=== PATIENT | male | born 1995 | race Caucasian/White ===

== ENCOUNTER 2019-01-01 17:13 | Emergency (ER) | payer SELFPAY ==
--- NOTE | 2019-01-01 17:29 | ED Physician Documentation ---
General Adult - HISTORIAN Historian: patient - HPI Stated Complaint: Laceration Chief Complaint: Laceration/Recheck/Suture Onset: hours (1) Timing: still present Severity: mild Further Comments: yes (laceration on left hand from a knife he was cutting a belt from a chicken feces machine) - ROS CONST: no problems MS/SKIN/LYMPH: other (laceration ) - PAST HX Past History: none Other History: none Surgeries/Procedures: none Immunizations: tetanus Allergies/Adverse Reactions: Allergies Allergy/AdvReac Type Severity Reaction Status Date / Time No Known Allergies Allergy Verified 01/01/19 17:29 Home Medications: Ambulatory Orders Medication Instructions Recorded NK 01/01/19 - SOCIAL HX Smoking History: non-smoker Alcohol Use: none Drug Use: none - FAMILY HX Family History: No - VITAL SIGNS Vital Signs: Vital Signs Temp Pulse Resp BP Pulse Ox 97.8 F 91 H 18 132/74 98 01/01/19 18:10 01/01/19 18:10 01/01/19 18:10 01/01/19 18:10 01/01/19 18:10 - REVIEWED ASSESSMENTS Nursing Assessment Reviewed: Yes Vitals Reviewed: Yes Procedures Wound Location: upper extremity (left hand 4-5 th digit web ) Wound's Depth, Shape: superficial Wound Explored: contaminated Anesthesia: 1% Lidocaine Wound Debrided: minimal Wound Repaired With: sutures Suture Size/Type: 4:0 Number of Sutures: 6 ED Results Lab/Radiology - Orders Orders: ED Orders Category Date Time Status Apply/change dressing NOW Care 01/01/19 17:31 Active Cleanse with NS and Chlorhexid 1T Care 01/01/19 17:30 Active Triple Antibiotic Ointment 1T Care 01/01/19 17:30 Active Diph,Pertuss(Acell),Tet Vac/Pf [Adacel] Med 01/01/19 17:30 Discontinued 0.5 ml IM .ONCE ONE Lidocaine 1% 5ml(IM or SUTURE) [Xylocaine] Med 01/01/19 17:31 Discontinued 50 mg .ROUTE .STK-MED ONE Lidocaine 1% 5ml(IM or SUTURE) [Xylocaine] Med 01/01/19 17:30 Discontinued 50 mg IJ NOW ONE Sulfamethoxazole/Trimethoprim [Bactrim Ds] Med 01/01/19 18:06 Discontinued 1 each PO .STK-MED ONE Sulfamethoxazole/Trimethoprim [Bactrim Ds] Med 01/01/19 18:05 Discontinued 1 each PO NOW ONE General Adult Physical Exam - PHYSICAL EXAM GENERAL APPEARANCE: no distress EENT: eye inspection normal, no signs of dehydration RESPIRATORY: no resp distress CVS: reg rate & rhythm, heart sounds normal, equal pulses ABDOMEN: soft BACK: normal inspection SKIN: warm/dry, other (2 cm laceration web space between 4/5 fingers ) EXTREMITIES: non-tender NEURO: oriented X3 Discharge Clincal Impression: Laceration of left hand Qualifiers: Encounter type: initial encounter Foreign body presence: without foreign body Qualified Code(s): S61.412A - Laceration without foreign body of left hand, initial encounter Referrals: Primary Doctor,No [Primary Care Provider] - 2 Days Comments: 1. Keep area clean and dry 2. remove 6 sutures in 10 days 3. Bactrim DS take 1 by mouth twice per day x 10 days 4. See PCP for any concerns - re: infection or pain 5. Return to ER for any concerns Condition: Stable Disposition: 01 HOME, SELF-CARE Decision to Admit: NO Date of Decison to Admit: 01/01/19 Decision Time: 18:03
[2019-01-01] MEDS ORDERED: DIPH,PERTUSS(ACELL),TET VAC/PF 0.5 ML DISP.SYRIN IM ONE (17:30)
[2019-01-01] MEDS ORDERED: Lidocaine 1% 5ml 10 MG/ML VIAL IJ ONE (17:30)
[2019-01-01] MEDS ORDERED: Lidocaine 1% 5ml 10 MG/ML VIAL ONE (17:31)
[2019-01-01] MEDS ORDERED: SULFAMETHOXAZOLE/TRIMETHOPRIM 800/160MG TAB PO ONE ×2 (18:05→18:06)
[2019-01-01 18:15] VITALS: BP 132/74
== END 2019-01-01 18:10 | disposition home or self-care (01) ==
LOC: ED 17:13
DX: S61.412A Laceration without foreign body of left hand, initial encounter (principal); W26.0XXA Contact with knife, initial encounter; Y93.89 Activity, other specified; Y92.9 Unspecified place or not applicable
CPT/HCPCS: 12001; 90471; 90715; 99283; A9270; J7030